=== PATIENT | male | born 1985 | race Caucasian/White ===

== ENCOUNTER 2019-06-26 13:10 | Emergency (ER) | payer OTHER ==
[2019-06-26 13:24] VITALS: BP 131/88; PULSE 87; TEMP 97.3; BMI 29.5
[2019-06-26] MEDS ORDERED: SODIUM CHLORIDE 1,000 ML IV STA (13:31)
[2019-06-26] MEDS ORDERED: ONDANSETRON 4 MG/2 ML VIAL IVPB ONE (13:32)
[2019-06-26] MEDS ORDERED: LOPERAMIDE HCL 2 MG CAPSULE PO ONE (13:32)
--- NOTE | 2019-06-26 13:32 | PDOC ---
History of Present Illness - General Chief Complaint: Vomiting/Diarrhea Stated Complaint: NAUSEA, VOMITING, DIARRHEA Time Seen by Provider: 06/26/19 13:20 - History of Present Illness Initial Comments: 06/26/19 13:51 Chief complaint: Nausea, diarrhea since this morning HPI: Patient developed nausea while at work today, followed by 7 bowel movements , the first of which were soft, and the last of which were watery. There was no blood or mucus. There is been no vomiting. Review of systems: Admits mid abdominal pain, worse earlier today, now mild, crampy with exacerbations during episodes of diarrhea. No localization of the pain to the right or left lower quadrants. Denies chest pain, shortness of breath, hematemesis, melena, bloody stool, fever/chills, URI symptoms, sore throat, cough, urinary tract symptoms, visual or focal neurologic symptoms, unsteadiness of gait, lightheadedness or dizziness. Remainder of systems reviewed and negative Past medical history: Crohn's disease, controlled on Humira, which he receives every 2 weeks. His current pain and diarrhea are not similar to his prior symptoms of Crohn's disease Social history: No tobacco alcohol or drugs. Works in a healthcare facility. Family history: Reviewed and noncontributory Physical exam: Alert and oriented well-developed well-nourished no acute distress cooperative Afebrile, vital signs normal No pallor or icterus. PERRLA, ENT clear Neck supple without bruit mass or nodes Lungs clear CV regular without murmur rub or gallop Abdomen nondistended. Bowel sounds normal. Soft without mass tenderness organomegaly. Specifically, there appears to be no pain elicited with deep palpation of the abdomen or pelvic regions. Extremities no CCE Skin clear, no rash, adequate turgor and wet mucous membranes Neurological intact Impression: Viral gastroenteritis, less likely flareup of Crohn's disease, no sign of appendicitis on exam. Plan: CBC and chemistries, IV fluids, antiemetic, and antidiarrheal. Further evaluation and treatment depending on results and response to therapy Past History - Past Medical History Allergies/Adverse Reactions: Allergies Allergy/AdvReac Type Severity Reaction Status Date / Time No Known Allergies Allergy Verified 06/26/19 13:15 Home Medications: Ambulatory Orders Adalimumab [Humira] mg SQ ASDIR 06/26/19 Loratadine [Claritin] 10 mg PO DAILY 06/26/19 Meclizine HCl 50 mg PO DAILY 06/26/19 Omeprazole 20 mg PO DAILY 06/26/19 Ondansetron [Zofran -] 4 mg PO ONCE 06/26/19 COPD: No GI Disorders: Yes (CROHN'S) - Psycho Social/Smoking Cessation Hx Smoking History: Never smoked Have you smoked in the past 12 months: No Information on smoking cessation initiated: No *Physical Exam - Vital Signs Last Vital Signs Temp Pulse Resp BP Pulse Ox 97.3 F L 87 18 131/88 100 06/26/19 13:10 06/26/19 13:10 06/26/19 13:10 06/26/19 13:10 06/26/19 13:10 ED Treatment Course - LABORATORY CBC & Chemistry Diagram: 06/26/19 13:30 06/26/19 13:30 Medical Decision Making - Medical Decision Making 06/26/19 15:42 White blood count 16.7, probably consistent with viral gastroenteritis. No examination findings of acute abdomen. In fact, no appreciable tenderness whatsoever on examination. Sodium 134 potassium 4.4 chloride 97 bicarb 25 BUN 22 creatinine 1.2. Probable mild dehydration Urinalysis clear Strep screen was performed because his daughter has strep throat. 06/26/19 16:57 Strep screen is negative. Urinalysis with trace blood. This may be due to his illness, but he is instructed to follow-up with urologist to make sure the blood clears up and have further testing if it persists. Much improved with fluids and Zofran. No further nausea. No vomiting or diarrhea. Abdomen remains soft and nontender. Normal bowel sounds. Fully ambulatory in no pain or other distress at discharge to follow-up as directed Discharge - Discharge Information Problems reviewed: Yes Clinical Impression/Diagnosis: Viral gastroenteritis Condition: Improved Disposition: HOME - Admission No - Follow up/Referral Referrals: Leandro Moreau MD [Primary Care Provider] - 3 days Lee Cain MD [Staff Physician] - 1 week - Patient Discharge Instructions Patient Printed Discharge Instructions: DI for Viral Gastroenteritis -- Adult, DI for Diarrhea and Traveler's Diarrhea -- Adult, DI for Nausea -- Adult Additional Instructions: Continue Zofran for nausea, Imodium for diarrhea, drink plenty of fluids, try to stay on clear liquids only until diarrhea has subsided for at least 12 hours.. No solid food or dairy products until symptoms resolve. Strep test was negative Urinalysis showed a small amount of blood. There was no sign of infection. This may be due to to your present viral illness, but a concurrent kidney problem cannot be excluded. You should have a urinalysis performed again when this gastrointestinal infection is cleared up. If blood persists, you should undergo further testing by a urologist. You were provided with a urologist referral and should follow-up as directed. - Post Discharge Activity Work/Back to School Note: Back to Work
[2019-06-26] MEDS ORDERED: LOPERAMIDE HCL 2 MG CAPSULE ONE (13:37)
[2019-06-26] MEDS ORDERED: ONDANSETRON 4 MG/2 ML VIAL ONE (13:37)
[2019-06-26 14:06] LABS: ALBUMIN 5.2 g/dl (3.4-5.0); BILIRUBIN,TOTAL 0.8 mg/dl (0.2-1); CALCIUM 10.1 mg/dl (8.5-10); CREATININE 1.2 mg/dl (0.55-1.3); POTASSIUM 4.4 mmol/L (3.5-5.1); TOT PROT 8.5 g/dl (6.4-8.2)
[2019-06-26 14:51] LABS: BASO % 0.2 % (0-2.0); EOS % 0.1 % (0-4.5); HEMATOCRIT 49.2 % (35.4-49); HEMOGLOBIN 16.9 GM/dL (11.7-16.9); LYMPH % 8.1 % (8-40); MCH 30.6 pg (25.7-33.7); MCHC 34.3 g/dl (32.0-35.9); MEAN CELL VOLUME 89.1 fl (80-96); MEAN PLT VOLUME 8.7 fl (7.5-11.1); MONO % 3.9 % (3.8-10.2); NEUT % 87.7 % (42.8-82.8); PLATELET COUNT 304 K/MM3 (134-434); RBC 5.51 M/mm3 (4.00-5.60); WHITE BLOOD COUNT 16.7 K/mm3 (4.0-10.0)
== END 2019-06-26 17:15 | disposition home or self-care (01) ==
LOC: FER 13:10
PROC: 3E033GC Introduction of Other Therapeutic Substance into Peripheral Vein, Percutaneous Approach (ICD-10-PCS; principal; 2019-06-26)
PROC: 3E0337Z Introduction of Electrolytic and Water Balance Substance into Peripheral Vein, Percutaneous Approach (ICD-10-PCS; 2019-06-26)
DX: K52.9 Noninfective gastroenteritis and colitis, unspecified (principal); K50.90 Crohn's disease, unspecified, without complications
CPT/HCPCS: 36415; 80053; 81003; 81015; 85025; 87070; 87880; 99284-25; J7030